=== PATIENT | male | born 1940 | race Caucasian/White ===

== ENCOUNTER 2021-02-28 09:30 | Emergency (ER) | payer OTHER ==
[~2021-02-28] VITALS: Ht 177.8 cm; Wt 59.0 kg
[2021-02-28] MEDS ORDERED: FLEXERIL PO (09:47)
[2021-02-28] MEDS ORDERED: COLACE100 MG PO (09:48)
[2021-02-28] MEDS ORDERED: DOFETILIDE250 MCG PO (09:48)
[2021-02-28] MEDS ORDERED: ACETAMINOPHEN500 M1 PO (09:49)
[2021-02-28] MEDS ORDERED: ASA81BEC PO (09:49)
[2021-02-28] MEDS ORDERED: ELIQUIS5 MG PO (09:49)
[2021-02-28] MEDS ORDERED: PROSCAR 5MG TABL5 MG PO (09:50)
[2021-02-28] MEDS ORDERED: ROXICODONE5 M2 PO (09:51)
[2021-02-28] MEDS ORDERED: FUSION PLUS CA1 EACH PO (09:51)
[2021-02-28] MEDS ORDERED: PROTONIX40 M2 PO (09:52)
[2021-02-28] MEDS ORDERED: MIRALAX119 GM PO (09:52)
[2021-02-28] MEDS ORDERED: ONE-DAILY MULT1 EAC1 PO (09:53)
[2021-02-28] MEDS ORDERED: FLOMAX0.4 MG PO (09:53)
[2021-02-28 11:46] VITALS: BP 146/79
== END 2021-02-28 11:48 | disposition home or self-care (01) ==
LOC: M.ERS 09:30
DX: M71.21 Synovial cyst of popliteal space [Baker], right knee (principal); I48.91 Unspecified atrial fibrillation; Z79.82 Long term (current) use of aspirin; Z79.899 Other long term (current) drug therapy; Z88.0 Allergy status to penicillin